=== PATIENT | male | born 2000 | race Caucasian/White ===

== ENCOUNTER → 2021-05-22 | Outpatient (CLI) | payer BC, OTHER ==
--- NOTE | 2021-05-22 14:14 | Diagnostic Imaging Report ---
EXAMINATION: Right elbow at 1:28 p.m. INDICATION: Injury. Three views were obtained. There are no prior studies available for comparison. FINDINGS: There is no fracture, dislocation, or acute bony abnormality evident. The posterior fat pad of the elbow joint is not elevated. The soft tissues are unremarkable. IMPRESSION: There is no evidence for an acute bony abnormality. Dictated by: Dictated on workstation # [id number]
== END ==
LOC: RAD FS 13:17
PROVIDERS: ATTEND Nurse Practitioner
DX: M25.521 Pain in right elbow (principal)
CPT/HCPCS: 73080